=== PATIENT | male | born 1975 | race Caucasian/White ===

== ENCOUNTER 2017-11-23 17:29 | Emergency (ER) | payer OTHER ==
[2017-11-23] MEDS ORDERED: ADENOSINE 3 MG/ML SOL IV ONE ×3 (17:37→17:40)
[2017-11-23 17:44] LABS: BASOPHILS % (AUTO) 1 % (0-3); EOSINOPHILS % (AUTO) 0 % (0-9); HEMATOCRIT 49 % (39-53); HEMOGLOBIN 16.6 gm/dl (13.5-17.7); LYMPHOCYTES % (AUTO) 20.43 % (10-50); MEAN CORPUSCULAR HEMOGLOBIN 30.5 pg (27.0-32.0); MEAN CORPUSCULAR HGB CONC 33.8 gm/dl (32.0-36.0); MEAN CORPUSCULAR VOLUME 90 fL (80-100); MONOCYTES % (AUTO) 9.3 % (0-12); NEUTROPHILS % (AUTO) 69.1 % (37-80)
[2017-11-23] MEDS ORDERED: SODIUM CHLORIDE 0.9% 1000ML 1,000 ML IV SCH (17:45)
[2017-11-23] MEDS ORDERED: ADENOSINE 3 MG/ML SOL IV PRN (17:45)
[2017-11-23 17:54] VITALS: TEMP 98.9
[2017-11-23 18:04] LABS: ALBUMIN 4.1 gm/dl (3.4-5.0); BILIRUBIN,TOTAL 0.3 mg/dl (0.2-1.0); CALCIUM 9.4 mg/dl (8.5-10.1); CARBON DIOXIDE 28.5 mEq/L (21-32); CREATININE 1.35 mg/dl (0.80-1.30); POTASSIUM 4.5 mMol/L (3.5-5.1); THYROID STIMULATING HORMONE 1.244 uIU/ml (0.358-3.740); TOTAL PROTEIN 7.4 gm/dl (6.4-8.2); TROP I 0.017 ng/ml (0.000-0.056)
[2017-11-23] MEDS ORDERED: SODIUM CHLORIDE 0.9% FLUSH 10 ML SOL IV PRN (18:07)
[2017-11-23 19:02] VITALS: BP 120/90; PULSE 97; RESP 18; O2SAT 97
== END 2017-11-23 18:50 | disposition home or self-care (01) | DRG 310 ==
LOC: ED 17:29
DX: I47.1 Supraventricular tachycardia (principal)
CPT/HCPCS: 80053; 84443; 84484; 85025; 93005; 96365; 96374; 99283; 99284; 99285; J0153

== ENCOUNTER 2017-12-04 01:11 | Emergency (ER) | payer OTHER ==
[2017-12-04 01:25] VITALS: TEMP 97.9
[2017-12-04] MEDS ORDERED: DILTIAZEM 5 MG/ML SOL IV ONE ×6 (01:28→02:53)
[2017-12-04] MEDS ORDERED: ASPIRIN 81 MG CHEWABLE CTB ONE (01:29)
[2017-12-04] MEDS ORDERED: DEXTROSE/SALINE 0.9% 1,000 ML IV SCH (01:30)
[2017-12-04 01:33] LABS: BASOPHILS % (AUTO) 1 % (0-3); EOSINOPHILS % (AUTO) 1 % (0-9); HEMATOCRIT 50 % (39-53); HEMOGLOBIN 16.8 gm/dl (13.5-17.7); LYMPHOCYTES % (AUTO) 26.31 % (10-50); MEAN CORPUSCULAR HGB CONC 33.8 gm/dl (32.0-36.0); MEAN CORPUSCULAR VOLUME 89 fL (80-100); MONOCYTES % (AUTO) 10.3 % (0-12); NEUTROPHILS % (AUTO) 61.6 % (37-80)
[2017-12-04 01:42] LABS: INR 0.97 (0.86-1.12)
[2017-12-04 01:52] LABS: BLOOD UREA NITROGEN 20 mg/dl (7-18); CALCIUM 8.8 mg/dl (8.5-10.1); CHLORIDE 105 mMol/L (98-107); CREATININE 1.06 mg/dl (0.80-1.30); GLUCOSE 112 mg/dl (74-106); MAGNESIUM 2.2 mg/dl (1.8-2.4); POTASSIUM 3.9 mMol/L (3.5-5.1); SODIUM 140 mMol/L (136-145); TROP I < 0.017 ng/ml (0.000-0.056)
[2017-12-04] MEDS ORDERED: DILTIAZEM 5 MG/ML 125 MG in SODIUM CHLORIDE 0.9% 100 ML 100 ML IV SCH (02:45)
[2017-12-04] MEDS ORDERED: ASPIRIN 81 MG CHEWABLE CTB PO ONE (02:50)
[2017-12-04 02:52] VITALS: PULSE 70; RESP 10; O2SAT 100
[2017-12-04] MEDS ORDERED: METOPROLOL TARTRATE 5 MG/5 ML SOL IV ONE ×2 (02:58)
[2017-12-04] MEDS ORDERED: SODIUM CHLORIDE 0.9% 1000ML 1,000 ML IV SCH (03:15)
[2017-12-04 03:53] VITALS: BP 134/87
== END 2017-12-04 04:15 | disposition short-term general hospital (02) | DRG 309 ==
LOC: ED 01:11
DX: I49.9 Cardiac arrhythmia, unspecified (principal); I47.1 Supraventricular tachycardia
CPT/HCPCS: 36415; 71045; 80048; 83735; 84484; 85025; 85610; 93005; 96365; 96374; 96375; 99291; J3490